=== PATIENT | female | born 1950 | race Caucasian/White ===

== ENCOUNTER 2017-07-30 13:03 | Emergency (ER) | payer OTHER ==
[~2017-07-30] VITALS: Ht 160 cm; Wt 72.6 kg
== END 2017-07-30 14:20 | disposition home or self-care (01) ==
LOC: ER 13:03
DX: R04.0 Epistaxis (principal)

== ENCOUNTER 2017-08-05 11:26 | Emergency (ER) | payer OTHER ==
[~2017-08-05] VITALS: Ht 157.5 cm; Wt 70.3 kg
== END 2017-08-05 12:10 | disposition home or self-care (01) ==
LOC: ER 11:26
DX: R04.0 Epistaxis (principal)